=== PATIENT | female | born 1970 | race Caucasian/White ===

== ENCOUNTER 2018-06-06 15:44 | Emergency (ER) | payer OTHER ==
[~2018-06-06] VITALS: Ht 149.9 cm; Wt 62.6 kg
[2018-06-06] MEDS ORDERED: SYNTHROID137 MCG PO (15:54)
[2018-06-06] MEDS ORDERED: SYNTHROID150 MCG PO (15:54)
== END 2018-06-06 17:37 | disposition home or self-care (01) ==
LOC: ER 15:44
DX: S70.02XA Contusion of left hip, initial encounter (principal); M62.838 Other muscle spasm; W10.8XXA Fall (on) (from) other stairs and steps, initial encounter; Y93.89 Activity, other specified; Y92.69 Other specified industrial and construction area as the place of occurrence of the external cause; Y99.8 Other external cause status

== ENCOUNTER 2021-01-18 10:56 | Day surgery (SDC) | payer OTHER ==
[~2021-01-18 10:56] MED LIST: ABATACEPT PO; FOLIC ACID PO; METHOT PO; SYNTHROID137 MCG PO; SYNTHROID150 MCG PO; TAMOXIFEN CITRA20 MG PO
[2021-01-18] MEDS ORDERED: KETO10TA2 PO (18:59)
[2021-01-18] MEDS ORDERED: PERCOCET 5-3251 EACH PO (19:00)
== END 2021-01-18 22:30 | disposition home or self-care (01) ==
LOC: CIR.AMB 10:56
PROVIDERS: ATTEND Obstetrics & Gynecology
DX: N83.02 Follicular cyst of left ovary (principal); N83.01 Follicular cyst of right ovary; N83.292 Other ovarian cyst, left side; N83.11 Corpus luteum cyst of right ovary; N83.291 Other ovarian cyst, right side; Z20.822 Contact with and (suspected) exposure to COVID-19

== ENCOUNTER 2021-07-27 06:58 | Day surgery (SDC) | payer OTHER ==
[~2021-07-27 06:58] MED LIST changes: +KETO10TA2 PO; +PERCOCET 5-3251 EACH PO
== END 2021-07-27 20:10 | disposition home or self-care (01) ==
LOC: CIR.AMB 06:58
PROVIDERS: ATTEND Surgery
DX: C50.812 Malignant neoplasm of overlapping sites of left female breast (principal); Z20.822 Contact with and (suspected) exposure to COVID-19; E78.00 Pure hypercholesterolemia, unspecified

== ENCOUNTER 2024-04-19 17:37 | Emergency (ER) | payer OTHER ==
[~2024-04-19] VITALS: Ht 149.9 cm; Wt 67.1 kg
[2024-04-19] MEDS ORDERED: KETOROLAC TROMETHAMINE 30 MG VIAL ONE (18:07)
[2024-04-19] MEDS ORDERED: FAMOTIDINE/PF 20 MG/2 ML VIAL ONE (18:07)
[2024-04-19] MEDS ORDERED: KETOROLAC TROMETHAMINE 30 MG VIAL IU ONE (18:15)
[2024-04-19] MEDS ORDERED: FAMOtidine 10 MG/ML (4ML VIAL) IV ONE (18:15)
[2024-04-19 18:20] LABS: HEMATOCRIT 40.9 % (36.0-45.00); HEMOGLOBIN 13.4 g/dL (12.0-15.00); MEAN CELL VOLUME 87.9 fL (80.00-100.00); MEAN CORPUSCULAR HEMOGLOBIN 28.9 pg (27.00-32.0); MEAN CORPUSCULAR HGB CONC 32.8 g/dl (32.0-36.0); PLATELET COUNT 223 K/uL (150-450); RED BLOOD COUNT 4.65 M/uL (4.00-6.00); RED CELL DISTRIBUTION WIDTH 14.1 % (11.5-14.5)
[2024-04-19 18:42] LABS: INR 1.04; PARTIAL THROMBOPLASTIN TIME 27.9 SECONDS (22.0-34.0); PROTHROMBIN TIME 11.3 SECONDS (9.0-11.5)
[2024-04-19 18:46] LABS: ALBUMIN 3.7 gm/dL (3.4-5.0); BILIRUBIN TOTAL 0.41 mg/dL (0.3-1.2); BILIRUBIN,CONJUGATED 0.11 mg/dL (0.0-0.2); BILIRUBIN,UNCONJUGATED 0.3 mg/dL (0.0-0.6); CALCIUM 8.8 mg/dL (8.5-10.1); CREATININE SERUM 0.72 mg/dL (0.55-1.02); GFR 84.1; GLOBULINA 3.8 G/DL (2.4-3.5); POTASSIUM 3.92 mEq/L (3.5-5.1); TOTAL PROTEIN 7.5 gm/dL (6.4-8.2)
[2024-04-19 18:56] LABS: URINE APPEARANCE Clear; URINE BILIRRUBIN Negative (NEGATIVE); URINE BLOOD Negative; URINE COLOR Yellow; URINE GLUCOSE Negative (NEGATIVE); URINE KETONE Negative (NEGATIVE); URINE LEUKOCYTE Negative; URINE NITRATE Negative; URINE PROTEIN Negative (NEGATIVE); URINE UROBILINOGEN 0.2 E.U./dl
[2024-04-19 18:59] LABS: URINE EPITHELIAL CELLS 21.9 uL (0.0-38.8); URINE RBC 2.9 uL (0.0-20.8); URINE WBC 6.9 uL (0.0-23.2)
[2024-04-19 19:00] LABS: URINE CAST 0.14 uL (0.0-1.40)
[2024-04-19] MEDS ORDERED: PEPCID AC20 MG PO (20:01)
[2024-04-19] MEDS ORDERED: CIPRO500 MG PO (20:01)
[2024-04-19] MEDS ORDERED: METRONIDAZOLE500 MG PO (20:01)
[2024-04-19] MEDS ORDERED: PROBIOTIC1 EAC2 PO (20:01)
[2024-04-19] MEDS ORDERED: ZOFRAN8 MG PO (20:01)
== END 2024-04-19 20:15 | disposition home or self-care (01) ==
LOC: ER 17:39
PROVIDERS: General Practice
DX: K57.92 Diverticulitis of intestine, part unspecified, without perforation or abscess without bleeding (principal); R10.32 Left lower quadrant pain; R10.9 Unspecified abdominal pain
CPT/HCPCS: 36415; 74177; Q9965